=== PATIENT | female | born 1970 | race Caucasian/White ===

== ENCOUNTER 2024-08-13 11:51 | Emergency (ER) | payer BC, SELFPAY ==
[2024-08-13 11:56] VITALS: BP 147/92
[2024-08-13 12:37] LABS: % Basophils 1.1 % (0-2); % Eosinophils 1.5 % (0-6); % Immature Granulocytes 0.3 % (0-0.5); % Lymphocytes 32.7 % (20.5-51.1); % Monocytes 9.5 % (1.7-9.3); % Neutrophils 54.9 % (42.2-75.2); Absolute Basophils 0.1 10^3/uL (0-0.2); Absolute Eosinophils 0.1 10^3/uL (0-0.7); Absolute Monocytes 0.6 10^3/uL (0.1-0.6); Absolute Neutrophils 3.3 10^3/uL (1.4-6.5); Hematocrit 41.7 % (37.0-47.0); Hemoglobin 14.3 g/dL (12.0-16.0); Mean Corp Hgb Conc. 34.3 g/dL (33.0-37.0); Mean Corpuscular Hgb 34.6 pg (27.0-31.0); Mean Platelet Volume 9.1 fL (7.4-10.4); Nucleated Red Blood Cells % 0 %; Platelet Count 274 10^3/uL (130-400); Red Blood Cell Count 4.13 10^6/uL (4.20-5.40); White Blood Cell Count 6.1 10^3/uL (4.8-10.8)
[2024-08-13 12:57] LABS: ALT (SGPT) 24 U/L (0-35); AST (SGOT) 29 U/L (14-36); Albumin 4.8 g/dl (3.5-5.0); Alkaline Phosphatase 54 U/L (38-126); Blood Urea Nitrogen 10 mg/dl (7-17); Calcium 9.8 mg/dl (8.4-10.2); Carbon Dioxide 26 mmol/L (22-30); Chloride 105 mmol/L (98-107); Glucose 107 mg/dl (70-99); Potassium 4.3 mmol/L (3.5-5.1); Sodium 142 mmol/L (135-145); Total Bilirubin 1.2 mg/dl (0.2-1.3); Total Protein 8.3 g/dl (6.3-8.2); eGFR > 60.00
[2024-08-13 13:01] LABS: Troponin I < 0.012 ng/ml
[2024-08-13 13:25] VITALS: BP 131/83
--- NOTE | 2024-08-13 13:30 | ED.GENMED ---
History of Present Illness
General
Chief Complaint: Blood Pressure Problem
Source: patient
Exam Limitations: none
Time Seen by Provider: 08/13/24 13:03
Nursing documentation reviewed up to this point in time: agreed with
History of Present Illness
History of Present Illness:
PT IS A 54 Y/O F with ho anxiety/depression
smoking
here with 2 weeks of headache to top of her head which waxes and wanes at times and on rare occasion was severe but mostly moderate
with elevated BP readings
pt says she went to her PCP for a physical and to address this headache and her bp was 150/100 5 days ago. she was unaware her bp was elevated
the PCP ordered blood work and told her to record her bps and recturn with readings
pt has taken a few readings to be 130-140s/90s-100s
but she has had this ongoing headache to the top of her head that is bothering her
over the past few days she has also had palpitations at times, which feel like racing or skipped beats
she has not had any chest pain, syncope, vomiting, diarrhea, confusion, numbness/tingling/weakness, neck pain, vision chagnes
pt has no hx of aneurysm
she has tried tylenol, motrin without relief
today at work she felt lightheaded with her headache and anxious
she went to the Rn to check her bp which was 140/100 and she was sent here for w/u
pt says after the rn checked her bp she told the patient that she shouldn't ignore it since, she could have an aneurysm and then pt became very anxious and took a dose of xanax which helped her feel more calm
she has 6/10 headache, no vsion changes
doesn't feel like she has significant stressors
Past History
Past History
ED Past Medical History: Arrthythmia (SVT)
ED Past Surgical History:
Social History
Tobacco: Smoker (half pack a day)
Alcohol: Occasional
Drug: None
Personal:
Living: with family
Employment: Employed
Family History
Family History: Early CAD and CAD (brother d. at age 40)
Review of Systems
Review of Systems
Allergies reviewed?: Yes
All Other Systems: Not applicable
Phy Exam
Physical Exam
Physical Exam:
GENERAL: Alert , in no apparent distress
EYE: pupils equal and reactive
NECK: Supple
ENT: o/p clr, mmm.
CARDIAC: Regular rate and rhythm .
LUNGS: Clear breath sounds bilaterally, no acute respiratory distress, no wheezes/rales/rhonchi
ABDOMEN: Soft, without focal tenderness, no r/g, no cvat, normal bowel sounds
NEUROLOGICAL: Alert and oriented, no focal neuro deficits cranial nerves intact, strength intact, sensation intact, [id number] normal
SKIN: Warm and dry, skin intact.
MUSCULOSKELETAL: No edema, well perfused. neg juan's sign
PSYCH: Normal and appropriate interaction.
Course
Orders/Labs/Results
Orders:
Orders
08/13/24 11:53
Electrocardiogram (*1) Urgent
Reason for Study: Chest Pain
EKG- Treatment ONCE
08/13/24 12:11
Complete Blood Count/With Diff Urgent
Comprehensive Metabolic Panel Urgent
Troponin I Urgent
08/13/24 13:45
Diphenhydramine [Benadryl] 25 mg IV NOW STA
08/13/24 13:46
CT Head W/o Iv Contrast Urgent
Comment:
Reason For Exam: headache x 2 weeks
08/13/24 14:00
Metoclopramide [Reglan] 10 mg 0.9% Sodium Chloride 50 ml [Nss] 50 ml IV NOW
08/13/24 16:11
Ketorolac [Toradol] 15 mg IV NOW STA
Abnormal Lab Results
08/13/24
12:11
RBC 4.13 L 10^6/uL
(4.20-5.40)
MCV 101.0 H fL
(81.0-99.0)
MCH 34.6 H pg
(27.0-31.0)
Monocytes % 9.5 H %
(1.7-9.3)
Glucose 107 H mg/dl
(70-99)
Total Protein 8.3 H g/dl
(6.3-8.2)
08/13/24 12:11
08/13/24 12:11
Vital Signs
Initial and Last Documented VS:
Initial Vital Signs
Temp Pulse Resp BP Pulse Ox
36.9 C 95 16 147/92 98
08/13/24 11:56 08/13/24 11:56 08/13/24 11:56 08/13/24 11:56 08/13/24 11:56
Last Documented Vital Signs
Temp Pulse Resp BP Pulse Ox
36.9 C 59 18 111/84 97
08/13/24 11:56 08/13/24 16:36 08/13/24 16:36 08/13/24 16:36 08/13/24 13:30
MDM/Problems Addressed
Differential Diagnosis Includes:
Hypertension, anxiety, migraine
MDM/Problems Addressed:
54-year-old female with a history of anxiety and depression and smoking presents with headache for 2 weeks which is the top of her head waxing and waning but never really going fully away, she is able to sleep at night but the pain returns in the
morning. She has not had any vision changes or red flag symptoms. On occasion it was more intense which she took ibuprofen for and it would slightly get better. Patient has had migraines previously and used to take Topamax but has not had one in
a while. She went to her family doctor a couple of days ago because of this headache and happened to have elevated blood pressure there. She has never had issues with her blood pressure. She was told to take her blood pressure readings at home
which were 140s to 150s over 90s to 100 and that concerned her. She was worried about waiting until next month to follow-up. Patient is also had some palpitations with Steve skipped beats and sometimes heart racing but is brief and not sustained
and she has no lightheadedness or syncope with it. Previously she actually wore a Holter monitor years ago for something similar and was told she had very few episodes of nonsustained SVT and was never treated. Patient says she is quite anxious
about all of these symptoms and thinks maybe that is contributing. She is aware she needs to quit smoking. She did use a Xanax today before coming because she was overwhelmed when her blood pressure was elevated at work today. She is
well-appearing but mildly anxious she has normal neuroexam. She has no neck pain and no concerning symptoms for dissection. Patient was worked up with labs showing no endorgan damage from elevated blood pressure. Creatinine is normal. She also
had a head CT which is unremarkable patient responded well to Reglan and Benadryl and Toradol for her headache noting moderate improvement. Her blood pressure stabilized to 111/84. At this point we will discharge her for follow-up with her family
doctor reassurance to just take her blood pressure readings once a day at home and discussed with the family doctor
*Critical Care Note
Total Time (30-74mins, 75-104mins- exclusive of procedures): Not Applicable
ED Attending Note
-
Portions of this chart may have been created with voice recognition software.� Occasional wrong word or��sound alike� substitutions may have occurred due to the inherent limitations of voice recognition software.
Discharge Plan
Departure
Patient Disposition: Home (Routine Discharge)
Date of Disposition: 08/13/24
Time of Disposition: 16:12
Patient with high blood pressure during this ER visit?: No
Condition: Fair
Covid-19: Not Applicable
Discharge Problem:
Headache
Instructions: Headache, Adult (DC), BLOOD PRESSURE
Prescriptions:
No Action
sulfamethoxazole-trimethoprim [Bactrim DS] 800-160 mg Tablet
1 tab PO BID
cephalexin [Keflex] 500 mg Capsule
500 mg PO QID
triamcinolone acetonide 0.1 % ointment
1 applic topical BID 7 Days Qty: 30 0RF
methocarbamol 750 mg tablet
750 mg PO ONCE PRN (Reason: muscle spasm) Qty: 6 0RF
Activity Restrictions/Additional Instructions:
YOUR BLOOD WORK WAS REASSURING
YOUR BLOOD PRESSURE WAS MILDLY ELEVATED BUT NOT CONCERNING ENOUGH TO TREAT WITH MEDICATIONS
TAKE YOUR READINGS ONCE A DAY AND WRITE THEM DOWN FOR [facility] FAMILY DOCTOR AND/OR A CASTING SUPERVISOR
YOU CAN CALL THE CASTING SUPERVISOR YOU SAW PREVIOUSLY TO FOLLOW UP AND POSSIBLY WEAR A MONITOR
YOU CAN TAKE IBUPROFEN 400 MG 3 TIMES ADAY FOR 2- DAYS FOR YOUR HEADACHE
RETURN FOR: SEVERE PAIN, VOMITING, CONFUSION, WEAKNESS, CHEST PAIN, SHORTNESS OF BREATH, PASSING OUT OR ANY CONCERNS
Interventions
Interventions:
*Risk Screen - Suicide Last Done: 08/13/24 11:56
*General Assessment Last Done: 08/13/24 11:56
*Neglect/Abuse Screening Last Done: 08/13/24 16:37
*ED COVID-19 Vaccine History Last Done: 08/13/24 11:56
*Nursing Disposition Last Done: 08/13/24 16:37
ED- Cardiac Assessment Last Done: 08/13/24 13:30
ED- Neurological Assessment Last Done: 08/13/24 13:30
ED- Pulmonary Assessment Last Done: 08/13/24 13:30
Discharge Date and Time
Discharge Date/Time: 08/13/24 16:38
Print Language: CZECH
[2024-08-13] MEDS: BENADRYL 25 MG IV (14:14)
[2024-08-13] MEDS: REGLAN 52 MG IV (14:22)
[2024-08-13 15:27] VITALS: BP 118/72
[2024-08-13] MEDS: TORADOL 15 MG IV (16:16)
[2024-08-13 16:36] VITALS: BP 111/84
== END 2024-08-13 16:38 | disposition home or self-care (01) ==
LOC: EMR 11:51
PROVIDERS: Emergency Medicine; EMERGENCY PHYSICIAN Emergency Medicine; FAMILY PHYSICIAN Internal Medicine
DX: F41.8 Other specified anxiety disorders (principal); F17.210 Nicotine dependence, cigarettes, uncomplicated; Z82.49 Family history of ischemic heart disease and other diseases of the circulatory system
CPT/HCPCS: 99284; 96374; 96375; 70450; 80053; 84484; 85025; 93005